=== PATIENT | male | born 1945 | race American Indian/Alaskan Native ===

== ENCOUNTER 2017-02-18 09:33 | Emergency (ER) | payer MEDICARE, OTHER ==
[2017-02-18 09:34] VITALS: BMI 32.5
[2017-02-18 09:44] VITALS: TEMP 99.1
[2017-02-18] MEDS ORDERED: Sodium Chloride 0.9% 1,000 ML IV STA (10:44)
--- NOTE | 2017-02-18 10:47 | ED PDOC ---
Arrival/HPI - General Chief Complaint: Pain, Chronic Time Seen by Provider: 02/18/17 10:19 Historian: Patient, EMS - History of Present Illness Narrative History of Present Illness (Text): 02/18/17 10:35 Modesto Muñiz is a 71 year old male, whose past medical history includes diabetes, hypertension, and AKA amputation, is brought in to the Emergency department via EMS complaining of body sores and body aches for the past couple of months. Patient reports he has been taking Percocet's for the pain and have significant relief. Patient denies chest pain, shortness of breath, headache, fever, chills, cough, nausea, vomiting, diarrhea, abdominal pain, dizziness or other complaints. PMD: Unknown Time/Duration: > month Symptom Onset: Sudden Symptom Course: Unchanged Activities at Onset: Rest Modifying Factors (Text): Percocet reliefs the pain Context: Home Associated Symptoms (Text): Body aches Past Medical History - Provider Review Nursing Documentation Reviewed: Yes - Infectious Disease Hx of Infectious Diseases: None - Cardiac Hx Cardiac Disorders: Yes Hx Hypertension: Yes - Pulmonary Hx Respiratory Disorders: Yes Hx Bronchitis: Yes - Neurological Hx Neurological Disorder: Yes HX Cerebrovascular Accident: Yes - HEENT Hx HEENT Disorder: No - Renal Hx Renal Disorder: No - Endocrine/Metabolic Hx Endocrine Disorders: Yes Hx Diabetes Mellitus Type 2: Yes - Hematological/Oncological Hx Blood Disorders: No - Integumentary Hx Dermatological Disorder: No - Musculoskeletal/Rheumatological Hx Musculoskeletal Disorders: No Hx Falls: No - Gastrointestinal Hx Gastrointestinal Disorders: No - Genitourinary/Gynecological Hx Genitourinary Disorders: Yes Hx Urinary Tract Infection: Yes - Psychiatric Hx Psychophysiologic Disorder: No Hx Substance Use: No - Surgical History Hx Amputation: Yes (bilateral lower extremity) Hx Musculoskeletal Surgery: Yes - Anesthesia Hx Anesthesia: Yes Hx Anesthesia Reactions: No Hx Malignant Hyperthermia: No Family/Social History - Physician Review Nursing Documentation Reviewed: Yes Family/Social History: Neoplasm/Cancer (cancer) Smoking Status: Former Smoker Hx Alcohol Use: No Hx Substance Use: No Substance used: COCAINE, NOT RECENT. Allergies/Home Meds Allergies/Adverse Reactions: Allergies No Known Allergies Allergy (Verified 02/18/17 09:44) Home Medications: Home Meds Medication Instructions Recorded Confirmed Unobtainable 02/18/17 02/18/17 Review of Systems - Review of Systems Constitutional: absent: Fevers Eyes: absent: Vision Changes Respiratory: absent: SOB Cardiovascular: absent: Chest Pain Gastrointestinal: absent: Abdominal Pain Musculoskeletal: Other (body aches) Skin: Other (body sores) Neurological: absent: Headache Endocrine: absent: Diaphoresis Psychiatric: absent: Anxiety Physical Exam Vital Signs Reviewed: Yes Vital Signs Temp Pulse Resp BP Pulse Ox 02/18/17 12:18 63 16 159/77 H 95 02/18/17 11:27 68 18 152/65 H 96 02/18/17 09:44 99.1 F 71 15 154/61 H 96 Temperature: Afebrile Blood Pressure: Hypertensive Pulse: Regular Respiratory Rate: Normal Appearance: Positive for: Well-Appearing, Non-Toxic, Comfortable Pain Distress: None Mental Status: Positive for: Alert and Oriented X 3 Finger Stick Blood Glucose: 89 - Systems Exam Head: Present: Atraumatic, Normocephalic Pupils: Present: PERRL Extroacular Muscles: Present: EOMI Conjunctiva: Present: Normal Mouth: Present: Moist Mucous Membranes Neck: Present: Normal Range of Motion Respiratory/Chest: Present: Clear to Auscultation, Good Air Exchange. No: Respiratory Distress, Accessory Muscle Use Cardiovascular: Present: Regular Rate and Rhythm, Normal S1, S2. No: Murmurs Abdomen: Present: Normal Bowel Sounds. No: Tenderness, Distention, Peritoneal Signs Upper Extremity: Present: Normal Inspection. No: Cyanosis, Edema Lower Extremity: Present: Other (bilateral above knee amputation). No: Edema Neurological: Present: GCS=15, CN II-XII Intact, Speech Normal Skin: Present: Warm, Dry, Normal Color, Other (subcutaneous sores on buttock area. does not appear infected). No: Rashes Psychiatric: Present: Alert, Oriented x 3, Normal Insight, Normal Concentration Medical Decision Making ED Course and Treatment: 02/18/17 10:35 Impression: 71 Year old male with body sores (chronic) and body aches (chronic). Plan: -- Labs -- Sodium Chloride -- Urinalysis -- Reassess and disposition Progress Notes: Patient refused blood work and asked to speak to a family welfare social work professor. - Lab Interpretations I have reviewed the lab results: Yes - Medication Orders Current Medication Orders: Sodium Chloride (Sodium Chloride 0.9%) 1,000 mls @ 150 mls/hr IV .[id number] STA Stop: 02/18/17 17:23 Last Admin: 02/18/17 10:59 Dose: Not Given Non-Admin Reason: Patient Refused - Scribe Statement The provider has reviewed the documentation as recorded by the Scribe 02/18/2017 Arely Gacria Provider Scribe Attestation: All medical record entries made by the Scribe were at my direction and personally dictated by me. I have reviewed the chart and agree that the record accurately reflects my personal performance of the history, physical exam, medical decision making, and the department course for this patient. I have also personally directed, reviewed, and agree with the discharge instructions and disposition. Disposition/Present on Arrival - Present on Arrival Any Indicators Present on Arrival: No History of DVT/PE: No History of Uncontrolled Diabetes: Yes Urinary Catheter: No History of Decub. Ulcer: No History Surgical Site Infection Following: Orthopedic Procedures - Disposition Have Diagnosis and Disposition been Completed?: Yes Diagnosis: Chronic back pain Disposition: HOME/ ROUTINE Disposition Time: 12:57 Patient Plan: Discharge Condition: IMPROVED Print Language: PRYDEINIG Additional Instructions: Antonino, thank you for letting us take care of you today. Return to the ER if your symptoms worsen, or if any problems. Take the medication listed below as prescribed. Follow up with your primary care physician next week for a re-evaluation.
[2017-02-18 12:19] VITALS: BP 159/77; PULSE 63
[2017-02-18 14:00] VITALS: RESP 18; O2SAT 98
== END 2017-02-18 14:00 | disposition home or self-care (01) ==
LOC: ED 09:33
DX: M54.9 Dorsalgia, unspecified (principal); G89.29 Other chronic pain

== ENCOUNTER 2017-08-12 13:08 | Emergency (ER) | payer MEDICARE, MEDICAID ==
[2017-08-12 13:15] VITALS: BMI 23.6
[2017-08-12 13:27] VITALS: TEMP 98.2
[2017-08-12] MEDS ORDERED: Oxycodone/Acetaminophen 5/325 mg Tab PO STA (15:00)
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
[2017-08-12 19:57] VITALS: BP 138/78; PULSE 67; RESP 18; O2SAT 99
== END 2017-08-12 17:30 | disposition home or self-care (01) ==
LOC: ED 13:08
DX: M54.5 Low back pain (principal); M79.1 Myalgia; E11.9 Type 2 diabetes mellitus without complications; I10 Essential (primary) hypertension; Z87.891 Personal history of nicotine dependence

== ENCOUNTER 2017-08-13 14:21 | Emergency (ER) | payer MEDICARE, MEDICAID ==
[2017-08-13 14:39] VITALS: TEMP 98.9
[2017-08-13 14:43] VITALS: BMI 25.0
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
[2017-08-13 16:42] VITALS: BP 126/33; PULSE 65; RESP 12; O2SAT 99
== END 2017-08-13 16:49 | disposition home or self-care (01) ==
LOC: ED 14:21
DX: M79.1 Myalgia (principal); G89.29 Other chronic pain; E11.9 Type 2 diabetes mellitus without complications

== ENCOUNTER 2017-09-01 03:58 | Emergency (ER) | payer MEDICARE, MEDICAID ==
[2017-09-01 03:59] VITALS: BMI 25.0
[2017-09-01 04:21] VITALS: RESP 18
[2017-09-01] MEDS ORDERED: Oxycodone/Acetaminophen 5/325 mg Tab PO STA (04:40)
--- NOTE | 2017-09-01 04:50 | ED PDOC ---
Arrival/HPI - General Chief Complaint: Upper Extremity Problem/Injury Time Seen by Provider: 09/01/17 04:06 Historian: Patient - History of Present Illness Narrative History of Present Illness (Text): 09/01/17 04:46 71 year old male, whose past medical history includes, bilateral AKA, diabetes, chronic shoulder and back pain, presents to the emergency department complaining of chronic left shoulder discomfort which patient states he had for the past year since he injured it. Patient states he sometimes feels a popping sensation in his shoulder. Patient denies any recent trauma. Patient denies any fever, chills, chest pain, shortness of breath, nausea, vomiting, diarrhea, urinary symptoms, back pain, neck pain, headache, dizziness, or any other complaints. Time/Duration: Other (1 year) Symptom Onset: Gradual Symptom Course: Unchanged Activities at Onset: Light Context: Home Past Medical History - Provider Review Nursing Documentation Reviewed: Yes - Infectious Disease Hx of Infectious Diseases: None - Cardiac Hx Cardiac Disorders: Yes Hx Hypertension: Yes - Pulmonary Hx Respiratory Disorders: Yes Hx Bronchitis: Yes - Neurological Hx Neurological Disorder: Yes HX Cerebrovascular Accident: Yes - HEENT Hx HEENT Disorder: No - Renal Hx Renal Disorder: No - Endocrine/Metabolic Hx Endocrine Disorders: Yes Hx Diabetes Mellitus Type 2: Yes - Hematological/Oncological Hx Blood Disorders: No - Integumentary Hx Dermatological Disorder: No - Musculoskeletal/Rheumatological Hx Musculoskeletal Disorders: No Hx Falls: No - Gastrointestinal Hx Gastrointestinal Disorders: No - Genitourinary/Gynecological Hx Genitourinary Disorders: Yes Hx Urinary Tract Infection: Yes - Psychiatric Hx Psychophysiologic Disorder: No Hx Substance Use: No - Surgical History Other/Comment: RIGHT AKA. 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 Allergies/Home Meds Allergies/Adverse Reactions: Allergies No Known Allergies Allergy (Verified 08/13/17 14:56) Review of Systems - Physician Review All systems were reviewed & negative as marked: Yes - Review of Systems Constitutional: absent: Fevers, Other Respiratory: absent: SOB Cardiovascular: absent: Chest Pain Gastrointestinal: absent: Diarrhea, Nausea, Vomiting Genitourinary Male: absent: Dysuria, Frequency, Hematuria Musculoskeletal: Other (left shoulder pain). absent: Back Pain, Neck Pain Neurological: absent: Headache, Dizziness Physical Exam Vital Signs Reviewed: Yes Vital Signs Temp Pulse Resp BP Pulse Ox 09/01/17 04:20 98.1 F 78 18 145/74 100 Temperature: Afebrile Blood Pressure: Normal Pulse: Regular Respiratory Rate: Normal Appearance: Positive for: Well-Appearing, Non-Toxic, Comfortable Pain Distress: None Mental Status: Positive for: Alert and Oriented X 3 - Systems Exam Head: Present: Atraumatic, Normocephalic Pupils: Present: PERRL Extroacular Muscles: Present: EOMI Conjunctiva: Present: Normal Mouth: Present: Moist Mucous Membranes Neck: Present: Normal Range of Motion Respiratory/Chest: Present: Clear to Auscultation, Good Air Exchange. No: Respiratory Distress, Accessory Muscle Use Cardiovascular: Present: Regular Rate and Rhythm, Normal S1, S2. No: Murmurs Abdomen: Present: Normal Bowel Sounds. No: Tenderness, Distention, Peritoneal Signs Back: Present: Normal Inspection. No: Midline Tenderness Upper Extremity: Present: Normal Inspection, Normal ROM, Neurovascularly Intact , Other (Minimal discomfort with left shoulder abduction). No: Cyanosis, Edema Lower Extremity: Present: Other (Lower Bilateral AKA). No: Edema Neurological: Present: GCS=15, CN II-XII Intact, Speech Normal. No: Other (No focal neurological deficits ) Skin: Present: Warm, Dry, Normal Color. No: Rashes Psychiatric: Present: Alert, Oriented x 3, Normal Insight, Normal Concentration Medical Decision Making ED Course and Treatment: 09/01/17 04:35 Impression: 71 year old male presents complaining of chronic left shoulder discomfort for the past year since her injured it. Past medical history includes chronic shoulder and back pain. Plan: -- Percocet -- Left Shoulder X-Ray -- Reassess and disposition Prior Visits: Notes and results from previous visits were reviewed. Patient was last seen in the emergency department on 08/13/17 presents complaining of back pain and generalized body aches. Patient was discharged. Progress Notes: - RAD Interpretation Narrative RAD Interpretations (Text): 09/01/17 06:04 Left Shoulder- No acute process Radiology Orders: 09/01/17 04:40 SHOULDER LEFT [RAD] Stat Die Polisher: ED Physician - Medication Orders Current Medication Orders: Discontinued Medications Oxycodone/Acetaminophen (Percocet 5/325 Mg Tab) 1 tab PO STAT STA Stop: 09/01/17 04:41 Last Admin: 09/01/17 04:49 Dose: 1 tab MAR Pain Assessment Document 09/01/17 04:49 CNR (Rec: 09/01/17 04:49 CNR [id number]) Pain Reassessment Is this a pain reassessment? Yes Location Left, Right or Bilateral Left Pain Location Body Site Shoulder - Scribe Statement The provider has reviewed the documentation as recorded by the Pito Levin Provider Scribe Attestation: All medical record entries made by the Scribe were at my direction and personally dictated by me. I have reviewed the chart and agree that the record accurately reflects my personal performance of the history, physical exam, medical decision making, and the department course for this patient. I have also personally directed, reviewed, and agree with the discharge instructions and disposition. Disposition/Present on Arrival - Present on Arrival Any Indicators Present on Arrival: No History of DVT/PE: No History of Uncontrolled Diabetes: Yes Urinary Catheter: No History of Decub. Ulcer: No History Surgical Site Infection Following: Orthopedic Procedures - Disposition Have Diagnosis and Disposition been Completed?: Yes Diagnosis: Chronic left shoulder pain Disposition: HOME/ ROUTINE Disposition Time: 06:05 Patient Plan: Discharge Patient Problems: Current Active Problems Problem Status Onset Chronic left shoulder pain Acute Condition: GOOD Discharge Instructions (ExitCare): Chronic Pain (DC), Shoulder Pain (DC) Additional Instructions: Take meds as prescribed/follow up with your doctor/orthopedist this week Prescriptions: Naproxen [Naprosyn] 500 mg PO BID PRN #14 tab PRN Reason: Pain Referrals: Prabhu Ordaz DO [Staff Provider] - Follow up with primary Forms: [email or web address] ([place])
[2017-09-01 08:21] VITALS: BP 166/80; PULSE 76; TEMP 97.8; O2SAT 97
--- NOTE | 2017-09-01 08:22 | RAD ---
PROCEDURE: Radiographs of the Left Shoulder HISTORY: pain COMPARISON: No prior. FINDINGS: BONES: Normal. No fracture. JOINTS: Normal. Glenohumeral and acromioclavicular joints preserved. No osteoarthritis. SOFT TISSUES: Normal. OTHER FINDINGS: None. IMPRESSION: Normal radiographs of the left shoulder.
== END 2017-09-01 11:15 | disposition home or self-care (01) ==
LOC: ED 03:58
DX: M25.512 Pain in left shoulder (principal); G89.29 Other chronic pain

== ENCOUNTER 2017-09-05 16:16 | Emergency (ER) | payer MEDICARE, MEDICAID ==
[2017-09-05 16:16] VITALS: BMI 25.0
[2017-09-05 16:52] VITALS: RESP 18; TEMP 98.2
--- NOTE | 2017-09-05 17:33 | ED PDOC ---
Arrival/HPI - General Chief Complaint: Pain, Chronic Time Seen by Provider: 09/05/17 16:41 Historian: Patient - History of Present Illness Narrative History of Present Illness (Text): 09/05/17 17:31 Modesto Muñiz is a 71 year old male, whose past medical history includes hypertension and diabetes, who presents to the emergency department complaining of chronic body pain for 1 year. Patient notes he takes "street percocets" for the pain. patient denies any fever, vomiting, shortness of breath, headache, dizziness or any other complaints. Time/Duration: Other (1 year) Symptom Onset: Gradual Symptom Course: Unchanged Activities at Onset: Light Context: Home Past Medical History - Provider Review Nursing Documentation Reviewed: Yes - Infectious Disease Hx of Infectious Diseases: None - Cardiac Hx Cardiac Disorders: Yes Hx Hypertension: Yes - Pulmonary Hx Respiratory Disorders: Yes Hx Bronchitis: Yes - Neurological Hx Neurological Disorder: Yes HX Cerebrovascular Accident: Yes - HEENT Hx HEENT Disorder: No - Renal Hx Renal Disorder: No - Endocrine/Metabolic Hx Endocrine Disorders: Yes Hx Diabetes Mellitus Type 2: Yes - Hematological/Oncological Hx Blood Disorders: No - Integumentary Hx Dermatological Disorder: No - Musculoskeletal/Rheumatological Hx Musculoskeletal Disorders: No Hx Falls: No - Gastrointestinal Hx Gastrointestinal Disorders: No - Genitourinary/Gynecological Hx Genitourinary Disorders: Yes Hx Urinary Tract Infection: Yes - Psychiatric Hx Psychophysiologic Disorder: No Hx Substance Use: No - Surgical History Other/Comment: RIGHT AKA. 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 Allergies/Home Meds Allergies/Adverse Reactions: Allergies No Known Allergies Allergy (Verified 09/05/17 16:45) Review of Systems - Physician Review All systems were reviewed & negative as marked: Yes - Review of Systems Constitutional: Normal Eyes: Normal ENT: Normal Respiratory: Normal Cardiovascular: Chest Pain. absent: Palpitations Gastrointestinal: Normal Genitourinary Male: Normal Musculoskeletal: Back Pain, Neck Pain Skin: Normal. absent: Rash Neurological: Normal. absent: Headache, Dizziness Endocrine: Normal Hemo/Lymphatic: Normal Psychiatric: Normal Physical Exam Vital Signs Reviewed: Yes Vital Signs Temp Pulse Resp BP Pulse Ox 09/05/17 20:18 73 163/93 H 09/05/17 20:06 73 18 163/93 H 99 09/05/17 18:17 75 18 125/69 100 09/05/17 16:44 98.2 F 78 18 127/76 100 09/05/17 16:39 97.9 F 80 20 127/78 100 Temperature: Afebrile Blood Pressure: Normal Pulse: Regular Respiratory Rate: Normal Appearance: Positive for: Well-Appearing, Non-Toxic, Comfortable Pain Distress: None Mental Status: Positive for: Alert and Oriented X 3 Finger Stick Blood Glucose: 201 - Systems Exam Head: Present: Atraumatic, Normocephalic Pupils: Present: PERRL Extroacular Muscles: Present: EOMI Conjunctiva: Present: Normal Mouth: Present: Moist Mucous Membranes Neck: Present: Normal Range of Motion Respiratory/Chest: Present: Clear to Auscultation, Good Air Exchange. No: Respiratory Distress, Accessory Muscle Use Cardiovascular: Present: Regular Rate and Rhythm, Normal S1, S2. No: Murmurs Abdomen: Present: Normal Bowel Sounds. No: Tenderness, Distention, Peritoneal Signs Back: Present: Normal Inspection Upper Extremity: Present: Normal Inspection. No: Cyanosis, Edema Lower Extremity: Present: Normal Inspection, Other (bilateral aka). No: Edema Neurological: Present: GCS=15, CN II-XII Intact, Speech Normal Skin: Present: Warm, Dry, Normal Color. No: Rashes Psychiatric: Present: Alert, Oriented x 3, Normal Insight, Normal Concentration Medical Decision Making ED Course and Treatment: 09/05/17 17:39 Impression: 71 year old male presents to the ED complaining of chronic body pain for 1 year. Plan: -- Flexiril -- Toradol -- Reassess and disposition Prior Visits: Notes and results from previous visits were reviewed. On 08/13/17 patient came in complaining of body pain. Patient was discharged home. Notes: Patient requests to go home. - Medication Orders Current Medication Orders: Discontinued Medications Cyclobenzaprine HCl (Flexeril) 10 mg PO STAT STA Stop: 09/05/17 17:15 Last Admin: 09/05/17 17:34 Dose: 10 mg Ketorolac Tromethamine (Toradol) 30 mg IM STAT STA Stop: 09/05/17 17:15 Last Admin: 09/05/17 17:34 Dose: Not Given Non-Admin Reason: Patient Refused Metoprolol Succinate (Toprol Xl) 25 mg PO STAT STA Stop: 09/05/17 20:11 Last Admin: 09/05/17 20:18 Dose: 25 mg MAR Pulse and Blood Pressure Document 09/05/17 20:18 RD (Rec: 09/05/17 20:18 RD [id number]) Pulse Pulse Rate (60-90) 73 Blood Pressure Blood Pressure (100/60-150/90) 163/93 - Scribe Statement The provider has reviewed the documentation as recorded by the Mendozaibalec Avila All medical record entries made by the Scribe were at my direction and personally dictated by me. I have reviewed the chart and agree that the record accurately reflects my personal performance of the history, physical exam, medical decision making, and the department course for this patient. I have also personally directed, reviewed, and agree with the discharge instructions and disposition. Disposition/Present on Arrival - Present on Arrival Any Indicators Present on Arrival: No History of DVT/PE: No History of Uncontrolled Diabetes: Yes Urinary Catheter: No History of Decub. Ulcer: No History Surgical Site Infection Following: Orthopedic Procedures - Disposition Have Diagnosis and Disposition been Completed?: Yes Diagnosis: Chronic pain Disposition: HOME/ ROUTINE Disposition Time: 16:00 Condition: GOOD Discharge Instructions (ExitCare): Chronic Pain (DC) Additional Instructions: Thank you for letting us take care of you today. Your provider was [Provider Name Here]. You were treated for [Diagnosis Here]. The emergency medical care you received today was directed at your acute symptoms. If you were prescribed any medication, please fill it and take as directed. It may take several days for your symptoms to resolve. Return to the Emergency Department if your symptoms worsen, do not improve, or if you have any other problems. Please contact your doctor or call one of the physicians/clinics you have been referred to that are listed on the Patient Visit Information form that is included in your discharge packet. Bring any paperwork you were given at discharge with you along with any medications you are taking to your follow up visit. Our treatment cannot replace ongoing medical care by a primary care provider (PCP) outside of the emergency department. Thank you for allowing the [facility] [employer] team to be part of your care today. Follow up with your doctor this week for chronic pain medication and management. Forms: [employer] ([place] Zealander)
[2017-09-05 20:07] VITALS: BP 163/93; PULSE 73; O2SAT 99
[2017-09-05] MEDS ORDERED: Metoprolol Succinate 25 mg XL Tab PO STA (20:10)
== END 2017-09-05 20:20 | disposition home or self-care (01) ==
LOC: ED 16:16
DX: G89.29 Other chronic pain (principal); E11.9 Type 2 diabetes mellitus without complications; I10 Essential (primary) hypertension; Z87.891 Personal history of nicotine dependence

== ENCOUNTER 2017-10-03 15:05 | Emergency (ER) | payer MEDICARE, MEDICAID ==
[2017-10-03 15:31] VITALS: BMI 43.9
[2017-10-03 15:38] VITALS: RESP 18; TEMP 97.8
[2017-10-03] MEDS ORDERED: oxyCODONE 5 mg Immediate Release Tab PO STA (15:56)
--- NOTE | 2017-10-03 16:52 | RAD ---
PROCEDURE: Right Hand Radiographs. HISTORY: r/o fx COMPARISON: None. FINDINGS: BONES: No acute fractures identified. Juxta-articular osteopenia. JOINTS: Osteoarthritic changes proximal and distal interphalangeal joint distribution. Contracture deformities of multiple digits. SOFT TISSUES: Normal. OTHER FINDINGS: None. IMPRESSION: No acute findings related to/accounting for the clinical presentation.
--- NOTE | 2017-10-03 16:55 | RAD ---
PROCEDURE: Radiographs of the Left Shoulder HISTORY: r/o fx COMPARISON: No prior. FINDINGS: BONES: Normal. No fracture. JOINTS: Preserved glenohumeral relationship, acromioclavicular degenerative change: Mild. SOFT TISSUES: Normal. OTHER FINDINGS: None. IMPRESSION: No acute findings related to/accounting for the clinical presentation.
--- NOTE | 2017-10-03 16:56 | RAD ---
PROCEDURE: Left Hand Radiographs. HISTORY: Fracture suspected COMPARISON: None. FINDINGS: BONES: No acute fractures identified. Juxta-articular osteopenia noted JOINTS: Findings suggestive of rheumatoid arthritis. SOFT TISSUES: Normal. OTHER FINDINGS: None. IMPRESSION: No acute findings related to/accounting for the clinical presentation.
[2017-10-03 18:03] VITALS: BP 141/79; PULSE 71; O2SAT 98
--- NOTE | 2017-10-03 18:17 | ED PDOC ---
Arrival/HPI - General Chief Complaint: Upper Extremity Problem/Injury Time Seen by Provider: 10/03/17 15:24 Historian: Patient - History of Present Illness Narrative History of Present Illness (Text): 10/03/17 18:15 Modesto uMñiz is a 71 year old male, whose past medical history includes bilateral AKA, who presents to the Emergency department complaining of bilateral shoulder and hand pain. Patient notes they did not take any medication for the pain. Patient denies any fevers, chills, chest pain, shortness of breath, abdominal pain, nausea, vomiting, diarrhea, back pain, neck pain, headache, dizziness, or any other complaint. Time/Duration: Prior to Arrival Symptom Onset: Gradual Symptom Course: Unchanged Activities at Onset: Light Context: Home Past Medical History - Provider Review Nursing Documentation Reviewed: Yes - Infectious Disease Hx of Infectious Diseases: None - Cardiac Hx Cardiac Disorders: Yes Hx Hypertension: Yes - Pulmonary Hx Respiratory Disorders: Yes Hx Bronchitis: Yes - Neurological Hx Neurological Disorder: Yes HX Cerebrovascular Accident: Yes - HEENT Hx HEENT Disorder: No - Renal Hx Renal Disorder: No - Endocrine/Metabolic Hx Endocrine Disorders: Yes Hx Diabetes Mellitus Type 2: Yes - Hematological/Oncological Hx Blood Disorders: No - Integumentary Hx Dermatological Disorder: No - Musculoskeletal/Rheumatological Hx Musculoskeletal Disorders: No Hx Falls: No - Gastrointestinal Hx Gastrointestinal Disorders: No - Genitourinary/Gynecological Hx Genitourinary Disorders: Yes Hx Urinary Tract Infection: Yes - Psychiatric Hx Psychophysiologic Disorder: No Hx Substance Use: No - Surgical History Other/Comment: RIGHT AKA. 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 Allergies/Home Meds Allergies/Adverse Reactions: Allergies No Known Allergies Allergy (Verified 09/05/17 16:45) Review of Systems - Physician Review All systems were reviewed & negative as marked: Yes - Review of Systems Constitutional: Normal Eyes: Normal ENT: Normal Respiratory: Normal. absent: SOB, Cough Cardiovascular: Normal. absent: Chest Pain Gastrointestinal: Normal. absent: Abdominal Pain, Diarrhea, Nausea, Vomiting Genitourinary Male: Normal. absent: Dysuria, Frequency Musculoskeletal: Arthralgias (bilateral shoulder and hand) Skin: Normal. absent: Rash Neurological: Normal. absent: Headache, Dizziness Endocrine: Normal Hemo/Lymphatic: Normal Psychiatric: Normal Physical Exam Vital Signs Reviewed: Yes Vital Signs Temp Pulse Resp BP Pulse Ox 10/03/17 18:02 71 18 141/79 98 10/03/17 16:40 75 18 145/86 97 10/03/17 15:06 97.8 F 81 18 149/97 H 96 Temperature: Afebrile Blood Pressure: Normal Pulse: Regular Respiratory Rate: Normal Appearance: Positive for: Well-Appearing, Non-Toxic, Comfortable Pain Distress: None Mental Status: Positive for: Alert and Oriented X 3 Finger Stick Blood Glucose: 120 - Systems Exam Head: Present: Atraumatic, Normocephalic Pupils: Present: PERRL Extroacular Muscles: Present: EOMI Conjunctiva: Present: Normal Mouth: Present: Moist Mucous Membranes Neck: Present: Normal Range of Motion Respiratory/Chest: Present: Clear to Auscultation, Good Air Exchange. No: Respiratory Distress, Accessory Muscle Use Cardiovascular: Present: Regular Rate and Rhythm, Normal S1, S2. No: Murmurs Abdomen: Present: Normal Bowel Sounds. No: Tenderness, Distention, Peritoneal Signs Back: Present: Normal Inspection Upper Extremity: Present: Other (arthritic changes bilaterally in shoulders and hands). No: Cyanosis, Edema Lower Extremity: Present: Normal Inspection. No: Edema Neurological: Present: GCS=15, CN II-XII Intact, Speech Normal Skin: Present: Warm, Dry, Normal Color. No: Rashes Psychiatric: Present: Alert, Oriented x 3, Normal Insight, Normal Concentration Medical Decision Making ED Course and Treatment: 10/03/17 18:19 Impression: 71 year old male presents to the Emergency department complaining of chronic hand and shoulder pain bilaterally. Plan: -- Xray Lt and Rt hand -- Xray Shoulder Left -- Oxycodone -- Reassess and disposition Progress Notes: 10/03/17 18:24 Xray left hand reviewed, shows: BONES: No acute fractures identified. Juxta-articular osteopenia noted JOINTS: Findings suggestive of rheumatoid arthritis. SOFT TISSUES: Normal. OTHER FINDINGS: None. IMPRESSION: No acute findings related to/accounting for the clinical presentation. Xray right hand reviewed, shows: BONES: No acute fractures identified. Juxta-articular osteopenia. JOINTS: Osteoarthritic changes proximal and distal interphalangeal joint distribution. Contracture deformities of multiple digits. SOFT TISSUES: Normal. OTHER FINDINGS: None. IMPRESSION: No acute findings related to/accounting for the clinical presentation. Xray shouldeer reviewed, shows: BONES: Normal. No fracture. JOINTS: Preserved glenohumeral relationship, acromioclavicular degenerative change: Mild. SOFT TISSUES: Normal. OTHER FINDINGS: None. IMPRESSION: No acute findings related to/accounting for the clinical presentation. - RAD Interpretation Radiology Orders: 10/03/17 15:56 HAND LEFT 3 VIEWS ROUTINE [RAD] Stat HAND RIGHT 3 VIEWS [RAD] Stat SHOULDER LEFT [RAD] Stat - Medication Orders Current Medication Orders: Discontinued Medications Oxycodone HCl (Oxycodone Immediate Release Tab) 5 mg PO STAT STA Stop: 10/03/17 15:57 Last Admin: 10/03/17 16:05 Dose: 5 mg ELVIS Pain Assessment Document 10/03/17 16:05 LA (Rec: 10/03/17 16:06 LA [id number]) Pain Reassessment Is this a pain reassessment? No Sleep Is patient sleeping during reassessment? No Presence of Pain Presence of Pain Yes Pain Scale Used Pain Scale Used Numeric Location Left, Right or Bilateral Bilateral Pain Location Body Site Neck Hand Description Description Constant Intensity of Pain at present 5 Pain Behavior Guarding - Scribe Statement The provider has reviewed the documentation as recorded by the Scribalec Avila All medical record entries made by the Scribe were at my direction and personally dictated by me. I have reviewed the chart and agree that the record accurately reflects my personal performance of the history, physical exam, medical decision making, and the department course for this patient. I have also personally directed, reviewed, and agree with the discharge instructions and disposition. Disposition/Present on Arrival - Present on Arrival Any Indicators Present on Arrival: No History of DVT/PE: No History of Uncontrolled Diabetes: Yes Urinary Catheter: No History of Decub. Ulcer: No History Surgical Site Infection Following: Orthopedic Procedures - Disposition Have Diagnosis and Disposition been Completed?: Yes Diagnosis: Osteoarthritis Disposition: HOME/ ROUTINE Disposition Time: 17:05 Condition: GOOD Discharge Instructions (ExitCare): Osteoarthritis (DC) Additional Instructions: Thank you for letting us take care of you today. The emergency medical care you received today was directed at your acute symptoms. If you were prescribed any medication, please fill it and take as directed. It may take several days for your symptoms to resolve. Return to the Emergency Department if your symptoms worsen, do not improve, or if you have any other problems. Please contact your doctor or call one of the physicians/clinics you have been referred to that are listed on the Patient Visit Information form that is included in your discharge packet. Bring any paperwork you were given at discharge with you along with any medications you are taking to your follow up visit. Our treatment cannot replace ongoing medical care by a primary care provider (PCP) outside of the emergency department. Thank you for allowing the [employer] team to be part of your care today. Follow up with your primary care doctor next week for re-evaluation and further management. Prescriptions: Ibuprofen [Motrin] 600 mg PO Q6 PRN #20 tab PRN Reason: Pain, Moderate (4-7) [facility] - Follow up with primary Forms: [employer] (Slovak)
== END 2017-10-03 18:39 | disposition home or self-care (01) ==
LOC: ED 15:05
DX: M19.90 Unspecified osteoarthritis, unspecified site (principal); E11.9 Type 2 diabetes mellitus without complications; I10 Essential (primary) hypertension; Z87.891 Personal history of nicotine dependence